=== PATIENT | female | born 1995 ===

== ENCOUNTER 2019-04-18 12:45 | Inpatient (IN) | payer OTHER ==
[~2019-04-18] VITALS: Ht 152.4 cm; Wt 74.8 kg
[2019-04-22] MEDS ORDERED: CLARITIN10 MG PO (04:07)
[2019-04-22] MEDS ORDERED: PRENATAL CAPLE1 EAC1 PO (04:07)
== END 2019-04-24 12:51 | disposition home or self-care (01) | DRG 807 ==
LOC: O/R 12:45 → LDR 04-22 03:18 → SURG-SUITE 04-22 17:42 → OB/GYN 04-29 12:45 → EDBD 04-29 12:45
PROVIDERS: ADMIT Obstetrics & Gynecology
PROC: 10E0XZZ Delivery of Products of Conception, External Approach (ICD-10-PCS; principal; 2019-04-22)
PROC: 0W8NXZZ Division of Female Perineum, External Approach (ICD-10-PCS; 2019-04-22)
PROC: 4A1HXCZ Monitoring of Products of Conception, Cardiac Rate, External Approach (ICD-10-PCS; 2019-04-22)
DX: O80 Encounter for full-term uncomplicated delivery (principal); Z37.0 Single live birth; Z3A.39 39 weeks gestation of pregnancy